=== PATIENT | female | born 1980 | race African-American/Black ===

== ENCOUNTER 2016-07-14 15:39 | Emergency (ER) | payer MEDICAID ==
[~2016-07-14] VITALS: Ht 165.1 cm; Wt 62.0 kg
[~2016-07-14 15:39] MED LIST: ALBU6.7H INH; CARI350T27 PO; OMEP20CA10 PO; RANI150C12 PO
[2016-07-14 16:50] VITALS: BP 111/77
[2016-07-14] MEDS ORDERED: MAGNESIUM/ALUMINUM HYDROXIDE/SIMETHICONE 30ML UDC PO STA (16:55)
[2016-07-14] MEDS ORDERED: DICYCLOMINE 10 MG/5 ML ORAL SYR PO STA (16:55)
[2016-07-14] MEDS ORDERED: VISCOUS LIDOCAINE 2% 15 ML UDC PO STA (16:55)
[2016-07-14] MEDS ORDERED: FAMOTIDINE 20MG TABLET PO ONE (17:00)
== END 2016-07-14 18:37 | disposition home or self-care (01) ==
LOC: ER 15:43
DX: K21.9 Gastro-esophageal reflux disease without esophagitis (principal); Z88.6 Allergy status to analgesic agent; Z79.899 Other long term (current) drug therapy; J45.909 Unspecified asthma, uncomplicated
CPT/HCPCS: 99284

== ENCOUNTER 2017-01-03 02:19 | Emergency (ER) | payer MEDICAID ==
[~2017-01-03] VITALS: Ht 165.1 cm; Wt 69.3 kg
[2017-01-03] MEDS ORDERED: FAMOTIDINE 20MG TABLET PO ONE (03:15)
[2017-01-03 03:39] LABS: BASOPHILS % 1.1 % (0.0-2.0); EOSINOPHILS % 4.4 % (0.0-5.0); HEMATOCRIT. 30.4 % (36.0-48.0); HEMOGLOBIN. 10.1 g/dL (12.0-16.0); LYMPHOCYTES % 25.6 % (20.0-50.0); MEAN CORPUSCULAR HEMOGLOBIN 26.8 pg (28.0-32.0); MEAN CORPUSCULAR VOLUME 80.5 fL (81.0-99.0); MEAN PLATELET VOLUME 7.4 fl (7.4-10.4); MONOCYTES % 8.3 % (2.0-8.0); NEUTROPHILS % 60.6 % (40.0-76.0); PLATELET 272 x1000/uL (130-400); RED BLOOD CELL COUNT 3.78 mill/uL (4.2-5.4); RED CELL DISTRIBUTION WIDTH 14.9 % (11.6-14.6)
[2017-01-03 03:56] LABS: CARBON DIOXIDE 30 mEq/L (21-32); CHLORIDE 106 mEq/L (98-107); TROPONIN I < 0.02 ng/mL (0.00-0.04)
[2017-01-03] MEDS ORDERED: VISCOUS LIDOCAINE 2% 15 ML UDC PO STA (04:40)
[2017-01-03] MEDS ORDERED: MAGNESIUM/ALUMINUM HYDROXIDE/SIMETHICONE 30ML UDC PO STA (04:40)
[2017-01-03 05:06] VITALS: BP 110/77
== END 2017-01-03 06:00 | disposition home or self-care (01) ==
LOC: ER 02:19
DX: R07.9 Chest pain, unspecified (principal); K21.9 Gastro-esophageal reflux disease without esophagitis; J45.909 Unspecified asthma, uncomplicated; F12.10 Cannabis abuse, uncomplicated; Z88.6 Allergy status to analgesic agent; Z98.51 Tubal ligation status
CPT/HCPCS: 36415; 71010; 80048; 81025; 83690; 84484; 85025; 85379; 93005; 99285

== ENCOUNTER 2017-01-29 03:07 | Emergency (ER) | payer MEDICAID ==
[~2017-01-29] VITALS: Ht 165.1 cm; Wt 68.5 kg
[2017-01-29 05:08] LABS: GLUCOSE URINE NEGATIVE (NEGATIVE); KETONES URINE NEGATIVE (NEGATIVE); LEUKOCYTE ESTERASE URINE NEGATIVE (NEGATIVE); NITRITE URINE NEGATIVE (NEGATIVE); OCCULT BLOOD URINE NEGATIVE (NEGATIVE); PROTEIN URINE NEGATIVE (NEGATIVE); SPECIFIC GRAVITY URINE 1.001 (1.005-1.030); UROBILINOGEN URINE 0.2 E.U./dL (0.2-1.0)
[2017-01-29 05:09] LABS: CLARITY URINE CLEAR (CLEAR); COLOR URINE YELLOW (YELLOW)
[2017-01-29] MEDS ORDERED: ONDANSETRON 4MG ODT PO ONE (06:45)
[2017-01-29] MEDS ORDERED: MAGNESIUM/ALUMINUM HYDROXIDE/SIMETHICONE 30ML UDC PO ONE (06:45)
[2017-01-29] MEDS ORDERED: DICYCLOMINE 10 MG/5 ML ORAL SYR PO ONE (06:45)
[2017-01-29] MEDS ORDERED: FAMOTIDINE 20MG TABLET PO ONE (06:45)
[2017-01-29 08:14] VITALS: BP 114/70
== END 2017-01-29 08:21 | disposition home or self-care (01) ==
LOC: ER 03:20
DX: R10.13 Epigastric pain (principal); K21.9 Gastro-esophageal reflux disease without esophagitis; Z88.6 Allergy status to analgesic agent
CPT/HCPCS: 71010; 81003; 81025; 99285; Q0162

== ENCOUNTER 2017-02-06 09:21 | Emergency (ER) | payer MEDICAID ==
[~2017-02-06] VITALS: Ht 165.1 cm; Wt 64.0 kg
[2017-02-06] MEDS ORDERED: MAGNESIUM/ALUMINUM HYDROXIDE/SIMETHICONE 30ML UDC PO STA (10:58)
[2017-02-06] MEDS ORDERED: VISCOUS LIDOCAINE 2% 15 ML UDC PO STA (10:58)
[2017-02-06] MEDS ORDERED: ONDANSETRON HCL 4MG/2ML VIAL IV STA (10:58)
[2017-02-06] MEDS ORDERED: ACETAMINOPHEN 325MG TABLET PO STA (10:58)
[2017-02-06] MEDS ORDERED: SODIUM CHLORIDE 0.9% 1,000 ML IV ONE (10:58)
[2017-02-06 11:21] LABS: BASOPHILS % 0.7 % (0.0-2.0); EOSINOPHILS % 3.6 % (0.0-5.0); HEMATOCRIT. 33.8 % (36.0-48.0); HEMOGLOBIN. 10.8 g/dL (12.0-16.0); LYMPHOCYTES % 22.5 % (20.0-50.0); MEAN CORPUSCULAR HEMOGLOBIN 25.9 pg (28.0-32.0); MEAN CORPUSCULAR VOLUME 80.8 fL (81.0-99.0); MEAN PLATELET VOLUME 7.1 fl (7.4-10.4); MONOCYTES % 5.8 % (2.0-8.0); NEUTROPHILS % 67.4 % (40.0-76.0); PLATELET 281 x1000/uL (130-400); RED BLOOD CELL COUNT 4.18 mill/uL (4.2-5.4); RED CELL DISTRIBUTION WIDTH 14.8 % (11.6-14.6)
[2017-02-06 11:25] LABS: CHLORIDE 105 mEq/L (98-107)
[2017-02-06 11:27] LABS: CLARITY URINE CLEAR (CLEAR); COLOR URINE YELLOW (YELLOW); GLUCOSE URINE NEGATIVE (NEGATIVE); KETONES URINE NEGATIVE (NEGATIVE); LEUKOCYTE ESTERASE URINE NEGATIVE (NEGATIVE); NITRITE URINE NEGATIVE (NEGATIVE); OCCULT BLOOD URINE NEGATIVE (NEGATIVE); PH URINE 6.5 (4.5-8.0); PROTEIN URINE NEGATIVE (NEGATIVE); SPECIFIC GRAVITY URINE 1.005 (1.005-1.030); UROBILINOGEN URINE 0.2 E.U./dL (0.2-1.0)
[2017-02-06 11:34] LABS: CARBON DIOXIDE 27 mEq/L (21-32); ETHANOL BLOOD < 10 mg/dL
[2017-02-06 12:05] LABS: *AMPHETAMINES SCREEN URINE NEGATIVE (NEGATIVE); *BARBITURATES SCREEN URINE NEGATIVE (NEGATIVE); *BENZODIAZEPINES SCREEN URINE NEGATIVE (NEGATIVE); *COCAINE SCREEN URINE NEGATIVE (NEGATIVE); CANNABINOID URINE SCREEN NEGATIVE (NEGATIVE); METHADONE URINE SCREEN NEGATIVE (NEGATIVE); OPIATES URINE SCREEN NEGATIVE (NEGATIVE); PHENCYCLIDINE URINE SCREEN NEGATIVE (NEGATIVE)
[2017-02-06] MEDS ORDERED: FAMOTIDINE 20MG/2ML VIAL IV STA (12:41)
[2017-02-06] MEDS ORDERED: IOHEXOL-300 100 ML BOTTLE ONE (14:18)
[2017-02-06 14:24] VITALS: BP 123/61
== END 2017-02-06 14:25 | disposition home or self-care (01) ==
LOC: ER 09:35
DX: K21.9 Gastro-esophageal reflux disease without esophagitis (principal); J45.909 Unspecified asthma, uncomplicated; Z88.6 Allergy status to analgesic agent
CPT/HCPCS: 36415; 74177; 80053; 80305; 81003; 81025; 83690; 85025; 93005; 96361; 96374; 96375; 99285; G0482; J2405; J3490; J7030; Q9967; Z7610

== ENCOUNTER 2018-01-05 16:03 | Emergency (ER) | payer MEDICAID, OTHER ==
[~2018-01-05] VITALS: Ht 165.1 cm; Wt 66.0 kg
[2018-01-05] MEDS ORDERED: SUMATRIPTAN SUCCINATE 6MG/0.5ML VIAL SUBCUT ONE (17:45)
[2018-01-05 18:21] VITALS: BP 106/69
== END 2018-01-05 18:30 | disposition home or self-care (01) ==
LOC: ER 16:03
DX: R51 Headache (principal); Z88.6 Allergy status to analgesic agent; Z79.899 Other long term (current) drug therapy
CPT/HCPCS: 96372; 99283; J3030

== ENCOUNTER 2019-06-29 04:37 | Emergency (ER) | payer MEDICAID, OTHER ==
[~2019-06-29] VITALS: Ht 165.1 cm; Wt 66.0 kg
[~2019-06-29 04:37] MED LIST changes: -ALBU6.7H INH; +ALBU6.7H11 INH; -OMEP20CA10 PO; +OMEP20CA14 PO
[2019-06-29] MEDS ORDERED: KETOROLAC 30MG/ML VIAL IM ONE (05:45)
[2019-06-29 06:42] VITALS: BP 119/74
== END 2019-06-29 06:42 | disposition home or self-care (01) ==
LOC: ER 04:37
DX: G43.909 Migraine, unspecified, not intractable, without status migrainosus (principal); Z88.6 Allergy status to analgesic agent
CPT/HCPCS: 96372; 99283; J1885

== ENCOUNTER 2019-07-05 12:43 | Emergency (ER) | payer OTHER ==
[~2019-07-05] VITALS: Ht 165.1 cm; Wt 58.9 kg
[2019-07-05] MEDS ORDERED: SODIUM CHLORIDE 0.9% 1,000 ML IV ONE (13:43)
[2019-07-05] MEDS ORDERED: ONDANSETRON HCL 4MG/2ML INJ IV STA (13:43)
[2019-07-05] MEDS ORDERED: MORPHINE SULFATE 4 MG/ML CPJ (NOT FOR IM USE) IV STA (13:43)
[2019-07-05 14:49] LABS: BASOPHILS % 0.7 % (0.0-2.0); EOSINOPHILS % 0.9 % (0.0-5.0); HEMATOCRIT. 28.1 % (36.0-48.0); HEMOGLOBIN. 9.3 g/dL (12.0-16.0); LYMPHOCYTES % 16.2 % (20.0-50.0); MEAN CORPUSCULAR HEMOGLOBIN 25.5 pg (28.0-32.0); MEAN CORPUSCULAR VOLUME 77.2 fL (81.0-99.0); MEAN PLATELET VOLUME 7.4 fl (7.4-10.4); MONOCYTES % 5.5 % (2.0-8.0); NEUTROPHILS % 76.7 % (40.0-76.0); PLATELET 318 x1000/uL (130-400); RED BLOOD CELL COUNT 3.64 mill/uL (4.2-5.4); RED CELL DISTRIBUTION WIDTH 17.1 % (11.6-14.6)
[2019-07-05 14:56] LABS: CHLORIDE 108 mEq/L (98-107)
[2019-07-05 14:59] LABS: CLARITY URINE CLEAR (CLEAR); COLOR URINE YELLOW (YELLOW); KETONES URINE TRACE (NEGATIVE); LEUKOCYTE ESTERASE URINE NEGATIVE (NEGATIVE); NITRITE URINE NEGATIVE (NEGATIVE); OCCULT BLOOD URINE 3+ (NEGATIVE); PH URINE 6.5 (4.5-8.0); PROTEIN URINE NEGATIVE (NEGATIVE); SPECIFIC GRAVITY URINE 1.004 (1.005-1.030); UROBILINOGEN URINE 0.2 E.U./dL (0.2-1.0)
[2019-07-05 15:13] LABS: *AMPHETAMINES SCREEN URINE NEGATIVE (NEGATIVE); *BARBITURATES SCREEN URINE NEGATIVE (NEGATIVE); *BENZODIAZEPINES SCREEN URINE NEGATIVE (NEGATIVE); *COCAINE SCREEN URINE NEGATIVE (NEGATIVE); METHADONE URINE SCREEN NEGATIVE (NEGATIVE); OPIATES URINE SCREEN NEGATIVE (NEGATIVE)
[2019-07-05 15:14] LABS: CANNABINOID URINE SCREEN NEGATIVE (NEGATIVE); PHENCYCLIDINE URINE SCREEN NEGATIVE (NEGATIVE)
[2019-07-05] MEDS ORDERED: MORPHINE SULFATE 4 MG/ML CPJ (NOT FOR IM USE) IV ONE (16:00)
[2019-07-05] MEDS ORDERED: ONDANSETRON HCL 4MG/2ML INJ IV ONE (16:00)
[2019-07-05 16:10] VITALS: BP 125/73
[2019-07-05] MEDS ORDERED: MAGNESIUM/ALUMINUM HYDROXIDE/SIMETHICONE 30ML UDC PO ONE (17:15)
== END 2019-07-05 18:04 | disposition home or self-care (01) ==
LOC: ER 13:11
DX: N39.0 Urinary tract infection, site not specified (principal); D64.9 Anemia, unspecified; R07.89 Other chest pain; G43.909 Migraine, unspecified, not intractable, without status migrainosus; G44.89 Other headache syndrome; R31.9 Hematuria, unspecified; R06.02 Shortness of breath; Z88.6 Allergy status to analgesic agent; Z88.8 Allergy status to other drugs, medicaments and biological substances; Z79.899 Other long term (current) drug therapy
CPT/HCPCS: 36415; 71045; 80053; 80305; 81003; 81025; 83880; 84484; 85025; 93005; 96374; 96375; 99285; J2270; J2405; J7030

== ENCOUNTER 2019-07-31 14:13 | Emergency (ER) | payer OTHER ==
[~2019-07-31] VITALS: Ht 165.1 cm; Wt 54.4 kg
[2019-07-31 14:19] VITALS: BP 100/70
[2019-07-31] MEDS ORDERED: MAGNESIUM/ALUMINUM HYDROXIDE/SIMETHICONE 30ML UDC PO STA (15:03)
[2019-07-31] MEDS ORDERED: VISCOUS LIDOCAINE 2% 15 ML UDC PO STA (15:03)
[2019-07-31 15:56] LABS: PROTHROMBIN TIME 10.4 sec (9.6-11.0)
[2019-07-31 15:58] LABS: CHLORIDE 108 mEq/L (98-107)
[2019-07-31 16:00] LABS: BASOPHILS % 1.1 % (0.0-2.0); HEMATOCRIT. 31.7 % (36.0-48.0); HEMOGLOBIN. 10.2 g/dL (12.0-16.0); LYMPHOCYTES % 27.1 % (20.0-50.0); MEAN CORPUSCULAR VOLUME 77.4 fL (81.0-99.0); MEAN PLATELET VOLUME 7.7 fl (7.4-10.4); MONOCYTES % 7.2 % (2.0-8.0); NEUTROPHILS % 61.6 % (40.0-76.0); PLATELET 287 x1000/uL (130-400); RED CELL DISTRIBUTION WIDTH 16.8 % (11.6-14.6)
== END 2019-07-31 16:53 | disposition home or self-care (01) ==
LOC: ER 14:13
DX: K20.9 Esophagitis, unspecified (principal); D64.9 Anemia, unspecified; K21.9 Gastro-esophageal reflux disease without esophagitis; Z79.899 Other long term (current) drug therapy; Z88.6 Allergy status to analgesic agent
CPT/HCPCS: 36415; 71045; 80053; 84484; 85025; 93005; 99284; 99285

== ENCOUNTER 2020-12-30 17:03 | Emergency (ER) | payer OTHER ==
[~2020-12-30] VITALS: Ht 165.1 cm; Wt 72.0 kg
[~2020-12-30 17:03] MED LIST changes: -ALBU6.7H11 INH; +ALBU6.7H15 INH
[2020-12-30 17:11] VITALS: BP 121/79
== END 2020-12-30 19:57 | disposition left against medical advice (07) ==
LOC: ER 17:03
DX: R68.89 Other general symptoms and signs (principal); Z53.21 Procedure and treatment not carried out due to patient leaving prior to being seen by health care provider

== ENCOUNTER 2022-03-03 00:57 | Emergency (ER) | payer OTHER ==
[~2022-03-03] VITALS: Ht 165.1 cm; Wt 77.0 kg
[2022-03-03 01:13] VITALS: BP 121/79
[2022-03-03 03:19] LABS: BASOPHILS % 1.2 % (0.0-2.0); HEMATOCRIT. 37.2 % (36.0-48.0); HEMOGLOBIN. 12.2 g/dL (12.0-16.0); LYMPHOCYTES % 22.8 % (20.0-50.0); MEAN CORPUSCULAR HEMOGLOBIN 26.9 pg (28.0-32.0); MEAN CORPUSCULAR VOLUME 82.1 fL (81.0-99.0); MEAN PLATELET VOLUME 6.9 fl (7.4-10.4); MONOCYTES % 4.7 % (2.0-8.0); NEUTROPHILS % 69.3 % (40.0-76.0); PLATELET 367 x1000/uL (130-400); RED BLOOD CELL COUNT 4.54 mill/uL (4.2-5.4); RED CELL DISTRIBUTION WIDTH 14.6 % (11.6-14.6)
[2022-03-03 03:25] LABS: CHLORIDE 106 mEq/L (98-107)
[2022-03-03 03:42] LABS: INR 0.9; PROTHROMBIN TIME 10.2 sec (9.6-11.0)
[2022-03-03] MEDS ORDERED: OMEP20TA23 MT (04:17)
== END 2022-03-03 05:02 | disposition home or self-care (01) ==
LOC: ER 00:57
DX: K92.0 Hematemesis (principal); K20.90 Esophagitis, unspecified without bleeding; K21.9 Gastro-esophageal reflux disease without esophagitis; Z90.710 Acquired absence of both cervix and uterus; Z91.14 Patient's other noncompliance with medication regimen; Z88.8 Allergy status to other drugs, medicaments and biological substances; Z88.6 Allergy status to analgesic agent
CPT/HCPCS: 36415; 71045; 80053; 81025; 85025; 99284

== ENCOUNTER 2023-01-10 17:12 | Emergency (ER) | payer OTHER ==
[~2023-01-10] VITALS: Ht 167.6 cm; Wt 91.0 kg
[~2023-01-10 17:12] MED LIST changes: +OMEP20TA23 MT
[2023-01-10 17:28] VITALS: O2SAT 99
[2023-01-10] MEDS ORDERED: ONDANSETRON 4MG ODT PO STA (18:58)
[2023-01-10] MEDS ORDERED: FAMOTIDINE 20MG TABLET PO ONE (19:00)
[2023-01-10] MEDS ORDERED: MAGNESIUM/ALUMINUM HYDROXIDE/SIMETHICONE 30ML UDC PO ONE (19:00)
[2023-01-10] MEDS ORDERED: SUCRALFATE 1G TABLET PO SCH (19:00)
[2023-01-10] MEDS ORDERED: MORPHINE SULFATE 4 MG/ML CPJ (NOT FOR IM USE) IV STA (20:24)
[2023-01-10] MEDS ORDERED: NITROGLYCERIN 0.4MG TABLET SL SL PRN (20:30)
[2023-01-10] MEDS ORDERED: SODIUM CHLORIDE 0.9% 1,000 ML IV ONE (20:30)
[2023-01-10 21:09] LABS: EOSINOPHILS % 3.3 % (0.0-5.0); HEMATOCRIT. 35.4 % (36.0-48.0); HEMOGLOBIN. 11.5 g/dL (12.0-16.0); LYMPHOCYTES % 26.9 % (20.0-50.0); MEAN CORPUSCULAR HEMOGLOBIN 26.6 pg (28.0-32.0); MEAN CORPUSCULAR HGB CONC 32.4 g/dL (31.0-37.0); MEAN CORPUSCULAR VOLUME 82.1 fL (81.0-99.0); MEAN PLATELET VOLUME 7.2 fl (7.4-10.4); MONOCYTES % 5.9 % (2.0-8.0); NEUTROPHILS % 62.9 % (40.0-76.0); PLATELET 385 x1000/uL (130-400); RED BLOOD CELL COUNT 4.31 mill/uL (4.2-5.4); WHITE BLOOD COUNT 8.9 x1000/uL (4.5-11.0)
[2023-01-10 21:13] LABS: CHLORIDE 104 mEq/L (98-107); POTASSIUM 4.2 mEq/L (3.5-5.1); SODIUM 138 mEq/L (136-145)
[2023-01-10 21:15] LABS: INDEX HEMOLYSI 1 (1-3); INDEX ICTERIC 1 (1-4); INDEX LIPEMIC 1 (1-3)
[2023-01-10 21:20] LABS: HCG SCREEN NEGATIVE
[2023-01-10 21:25] LABS: ALANINE AMINOTRANSFERASE 28 IU/L (13-61); ALBUMIN 3.6 g/dL (3.4-5.0); ASPARTATE AMINOTRANSFERASE 14 IU/L (15-37); BILIRUBIN TOTAL 0.4 mg/dL (0.1-1.0); CALCIUM 9.1 mg/dL (8.5-10.1); CARBON DIOXIDE 30 mEq/L (21-32); CREATININE 0.8 mg/dL (0.6-1.3); GLUCOSE 114 mg/dL (70-105); NT PRO B-TYPE NATRIURETIC PEP 49 pg/mL (5-125); PROTEIN TOTAL 8.1 g/dL (6.0-8.3); UREA NITROGEN BLOOD 7 mg/dL (7-21)
[2023-01-10 21:27] VITALS: TEMP 98
[2023-01-10 21:27] LABS: TROPONIN I HIGH SENSITIVITY < 4 ng/L (<54)
[2023-01-10 21:35] VITALS: BP 132/79; PULSE 95; RESP 15
[2023-01-10] MEDS ORDERED: IOHEXOL-350 100 ML BOTTLE ONE (22:05)
[2023-01-10 23:41] LABS: TROPONIN I HIGH SENSITIVITY 4 ng/L (<54)
[2023-01-11] MEDS ORDERED: SUCR1TAB MT (01:04)
== END 2023-01-11 01:28 | disposition home or self-care (01) ==
LOC: ER 17:12
DX: K29.70 Gastritis, unspecified, without bleeding (principal); D64.9 Anemia, unspecified; K21.9 Gastro-esophageal reflux disease without esophagitis; Z98.51 Tubal ligation status; Z90.710 Acquired absence of both cervix and uterus
CPT/HCPCS: 80053; 81025; 84703; 83880; 83605; 83690; 85025; 86850; 86900; 86901; 84484; 36415; 74174; 71045; 71275; 93005; 96361; 96374; 99285; Q9967; Q0162; J2270; J7030; Z7610

== ENCOUNTER 2024-04-28 00:03 | Emergency (ER) | payer OTHER ==
[~2024-04-28] VITALS: Ht 165.1 cm; Wt 95.0 kg
[~2024-04-28 00:03] MED LIST changes: +SUCR1TAB MT
[2024-04-28 00:54] VITALS: TEMP 37.1; O2SAT 100
[2024-04-28 01:58] LABS: BASOPHILS % 0.9 % (0.0-2.0); EOSINOPHILS % 2.8 % (0.0-5.0); HEMATOCRIT. 35.4 % (36.0-48.0); HEMOGLOBIN. 11.6 g/dL (12.0-16.0); LYMPHOCYTES % 30.1 % (20.0-50.0); MEAN CORPUSCULAR HEMOGLOBIN 26.6 pg (28.0-32.0); MEAN CORPUSCULAR HGB CONC 32.6 g/dL (31.0-37.0); MEAN CORPUSCULAR VOLUME 81.6 fL (81.0-99.0); MONOCYTES % 5.5 % (2.0-8.0); NEUTROPHILS % 60.7 % (40.0-76.0); PLATELET 348 x1000/uL (130-400); RED BLOOD CELL COUNT 4.34 mill/uL (4.2-5.4); WHITE BLOOD COUNT 7.1 x1000/uL (4.5-11.0)
[2024-04-28 02:03] LABS: CHLORIDE 104 mEq/L (98-107); POTASSIUM 4.5 mEq/L (3.5-5.1); SODIUM 143 mEq/L (136-145)
[2024-04-28 02:04] LABS: CARBON DIOXIDE 30 mEq/L (21-32)
[2024-04-28 02:05] LABS: CALCIUM 9.9 mg/dL (8.7-10.4)
[2024-04-28 02:10] LABS: GLUCOSE 114 mg/dL (70-105); UREA NITROGEN BLOOD 12 mg/dL (9-23)
[2024-04-28 02:11] LABS: ALANINE AMINOTRANSFERASE 32 IU/L (10-49); ALBUMIN 4.6 g/dL (3.2-4.8); ASPARTATE AMINOTRANSFERASE 24 IU/L (<34)
[2024-04-28 02:12] LABS: BILIRUBIN TOTAL 0.3 mg/dL (0.1-1.0); PROTEIN TOTAL 7.8 g/dL (6.0-8.3)
[2024-04-28 02:16] LABS: BILIRUBIN DIRECT < 0.1 mg/dL (<=3.0)
[2024-04-28 02:26] LABS: HCG SCREEN NEGATIVE
[2024-04-28 02:45] LABS: CLARITY URINE CLEAR (CLEAR); COLOR URINE YELLOW (YELLOW); GLUCOSE URINE NEGATIVE (NEGATIVE); KETONES URINE NEGATIVE (NEGATIVE); LEUKOCYTE ESTERASE URINE NEGATIVE (NEGATIVE); NITRITE URINE NEGATIVE (NEGATIVE); OCCULT BLOOD URINE NEGATIVE (NEGATIVE); PROTEIN URINE NEGATIVE (NEGATIVE); SPECIFIC GRAVITY URINE 1.007 (1.005-1.030); UROBILINOGEN URINE 0.2 E.U./dL (0.2-1.0)
[2024-04-28] MEDS ORDERED: SUCR1TAB MT (02:56)
[2024-04-28] MEDS: ONDANSETRON 4MG ODT PO STA (02:56)
[2024-04-28] MEDS: MAGNESIUM/ALUMINUM HYDROXIDE/SIMETHICONE 30ML UDC PO STA (03:03)
[2024-04-28] MEDS: VISCOUS LIDOCAINE 2% 15 ML UDC PO STA (03:03)
[2024-04-28 03:52] VITALS: BP 136/88; PULSE 76; RESP 16; O2SAT 100
== END 2024-04-28 03:55 | disposition home or self-care (01) ==
LOC: ER 00:03
DX: R10.84 Generalized abdominal pain (principal); K21.9 Gastro-esophageal reflux disease without esophagitis; Z90.710 Acquired absence of both cervix and uterus; Z79.899 Other long term (current) drug therapy; Z87.11 Personal history of peptic ulcer disease; Z88.6 Allergy status to analgesic agent
CPT/HCPCS: 36415; 80048; 80076; 81003; 84703; 85025; 93005; 99284; Q0162